=== PATIENT | female | born 1975 | race Caucasian/White ===

== ENCOUNTER 2019-12-01 21:35 | Emergency (ER) | payer BC ==
[2019-12-01] MEDS ORDERED: AMOXICILLIN 500MG CAPSULE PO ONE (21:49)
[2019-12-01] MEDS ORDERED: IBUPROFEN 600 MG TABLET PO ONE (21:49)
--- NOTE | 2019-12-01 21:51 | Emergency Department Record ---
History of Present Illness - General Chief complaint: ENT Stated complaint: R EAR PAIN Time Seen by Provider: 12/01/19 21:44 Source: Patient Mode of Arrival: Ambulatory Limitations: No limitations - History of Present Illness Initial comments: 44 yo female presents to ED for evaluation of right ear pain symptoms that began this evening, patient reports that she was seen and evaluated at [facility] 5 days ago and diagnosed with viral URI. Patient reports that her ear pain began this evening, denies taking anything for her symptoms prior to arrival for her pain. Patient denies fevers, cough, or drainage from her ear this evening. MD complaint: Ear pain Onset/Timin -: Days(s) Location: R ear Quality: Aching Consistency: Constant Improves with: None Worsens with: None Associated Symptoms: Cough - Related Data Home Medications Medication Instructions Recorded Confirmed Last Taken Dupilumab [Dupixent] 1 unit SQ ASDIR 12/01/19 12/01/19 11/25/19 Montelukast Sodium [Singulair] 10 mg PO QHS 12/01/19 12/01/19 12/01/19 21:48 Previous Rx's Medication Instructions Recorded Amoxicillin [Amoxil] 875 mg PO BID #20 tab 12/01/19 Allergies Allergy/AdvReac Type Severity Reaction Status Date / Time No Known Drug Allergies Allergy Verified 12/01/19 21:47 Travel Screening - Travel/Exposure Within Last 30 Days Have you traveled within the last 30 days?: No - Travel/Exposure Within Last Year Have you traveled outside the [place] in the last year?: No - Additonal Travel Details Have you been exposed to anyone with a communicable illness?: No - Travel Symptoms Symptom Screening: None Review of Systems Constitutional: Denies: Chills, Fever, Malaise, Night sweats Eyes: Denies: Eye discharge, Eye pain ENT: Reports: Congestion, Ear pain, Throat pain. Denies: Epistaxis Respiratory: Denies: Cough, Dyspnea Cardiovascular: Denies: Chest pain, Dyspnea on exertion Endocrine: Denies: Fatigue, Heat or cold intolerance Gastrointestinal: Denies: Abdominal pain, Nausea, Vomiting Genitourinary: Denies: Incontinence, Retention Musculoskeletal: Denies: Arthralgia, Back pain Skin: Denies: Bruising, Change in color Neurological: Denies: Abnormal gait, Confusion, Headache, Seizure Psychiatric: Denies: Anxiety Hematological/Lymphatic: Denies: Anemia, Blood Clots Past Medical History - SOCIAL HISTORY Smoking Status: Never smoker Alcohol Use: None Drug Use: None - RESPIRATORY Hx Respiratory Disorders: No - CARDIOVASCULAR Hx Cardio Disorders: No - NEURO Hx Neuro Disorders: No - GI Hx GI Disorders: No - Hx Genitourinary Disorders: No - ENDOCRINE Hx Endocrine Disorders: No - MUSCULOSKELETAL Hx Musculoskeletal Disorders: No - PSYCH Hx Psych Problems: No - HEMATOLOGY/ONCOLOGY Hx Hematology/Oncology Disorders: No Family Medical History Any Significant Family History?: No Physical Exam - General General Appearance: Alert, Oriented x3, Cooperative, Moderate distress (due to patient's discomfort symptoms) Limitations: No limitations - Head Head exam: Atraumatic, Normocephalic, Normal inspection Head exam detail: negative: Abrasion, Contusion, Garcia's sign, General tenderness, Hematoma, Laceration - Eye Eye exam: Normal appearance. negative: Conjunctival injection, Periorbital swelling, Periorbital tenderness, Scleral icterus - ENT Ear exam: Other (Right TM appears dull, erythematous on examination.). negative: Auricular hematoma, Auricular trauma Nasal Exam: negative: Active bleeding, Discharge, Dried blood, Foreign body Mouth exam: negative: Drooling, Laceration, Muffled voice, Tongue elevation Throat exam: negative: Tonsillar erythema, Tonsillomegaly, Tonsillar exudate, R peritonsillar mass, L peritonsillar mass - Neck Neck exam: Normal inspection. negative: Meningismus, Tenderness - Respiratory Respiratory exam: Normal lung sounds bilaterally. negative: Rales, Respiratory distress, Rhonchi, Stridor - Cardiovascular Cardiovascular Exam: Regular rate, Normal rhythm, Normal heart sounds - GI/Abdominal GI/Abdominal exam: Soft. negative: Rebound, Rigid, Tenderness - Rectal Rectal exam: Deferred - exam: Deferred - Extremities Extremities exam: Normal inspection. negative: Pedal edema, Tenderness - Back Back exam: Denies: CVA tenderness (R), CVA tenderness (L) - Neurological Neurological exam: Alert, Normal gait, Oriented X3 - Psychiatric Psychiatric exam: Normal affect, Normal mood - Skin Skin exam: Normal color. negative: Abrasion Type of lesion: negative: abrasion Course Vital Signs 12/01/19 21:42 Temperature 97.9 F Pulse Rate [ 79 Left] Respiratory 16 Rate Blood Pressure 135/82 [Left] Pulse Ox 100 - Reevaluation(s) Reevaluation #1: 12/01/19 21:55 Patient was seen and examined Examination appears c/w otitis media right, EAC appears normal on exam. Will initiate treatment with Amoxicillin and Ibuprofen at this time. No clinical evidence for perforation on examination as well. Patient appears stable for discharge at this time. Disposition Disposition: Discharge Clinical Impression: Otitis media, right Qualifiers: Otitis media type: unspecified Qualified Code(s): H66.91 - Otitis media, unspecified, right ear Disposition: Home, Self-Care Condition: (2) Stable Instructions: Otitis Media in Children (ED) Additional Instructions: Return to ED if your symptoms worsen or if you have any concerns. Amoxicillin and Ibuprofen as directed. Follow-up with your family doctor in 3-5 days as directed. Prescriptions: Amoxicillin [Amoxil] 875 mg PO BID #20 tab Forms: Patient Portal Access Time of Disposition: 21:51 Quality - Quality Measures Quality Measures: N/A - Blood Pressure Screening Does Patient Have Any of the Following: No Blood Pressure Classification: Pre-Hypertensive BP Reading Systolic Measurement: 135 Diastolic Measurement: 82 Screening for High Blood Pressure: < Pre-Hypertensive BP, F/U Documented > [[id number]] Pre-Hypertensive Follow-up Interventions: Referral to alternative/primary care provider.
== END 2019-12-01 22:03 | disposition home or self-care (01) ==
LOC: ER 21:35
DX: H66.91 Otitis media, unspecified, right ear (principal)
CPT/HCPCS: 99283